=== PATIENT | female | born 1950 | race Caucasian/White ===

== ENCOUNTER 2017-08-21 15:33 | Emergency (ER) | payer OTHER ==
--- NOTE | 2017-08-21 16:00 | ER Report ---
History and Physical Time Seen By MD: 15:42 Hx. of Stated Complaint: PT REPORTS BURNING ON URINATION, HEADACHE, LOW BACK PAIN, DIARRHEA, NAUSEA HPI/ROS Chief Complaint: "bladder infection" HPI: 67-year-old female states she believes she has a bladder infection. The patient states she has had a long history of UTI as a child and had renal surgery at 16 years. The patient reports not having a UTI in years but reports increased stress and a long drive with few bathroom stops may have contributed to this episode. The patient reports that her symptoms started this morning with pain and burning with urination, blood in her urine, feverish symptoms, chills, nausea, and diarrhea. She has taken AZO for pain. Head: reports headache ENMT: denies sinus pressure, denies sore throat Respiratory: denies shortness of breath CV: denies chest pain : reports dysuria, burning, and pain with urination, hematuria, reports low back pain GI: reports diarrhea, denies constipation Allergies: Uncoded Allergies: ANTIBIOTIC (Allergy, Unknown, 08/21/17) Home Meds Active Scripts Ondansetron (ZOFRAN ODT) 4 Mg Tab.rapdis, 4 MG PO Q6H Y for NAUSEA/VOMITING, # 20 TAB.AZ Prov:MARIBELL CHAMBERSE [facility] 08/21/17 Sulfamethoxazole/Trimet 800-160 Mg Tab (BACTRIM DS TABLET) 1 Each Tablet, 1 TAB PO Q12H, #14 TAB Prov:REYESMARIBELLE [facility] 08/21/17 Discontinued Scripts Sulfamethoxazole/Trimet 800-160 Mg Tab (BACTRIM DS TABLET) 1 Each Tablet, 1 TAB PO Q12H for 7 Days, #14 TAB Prov:REYESMARIBELLE [facility] 08/21/17 Past Medical/Surgical History renal surgery at 16 years of age, arthritis, total hip replacement Reviewed Nurses Notes: Yes Hx Alcohol Use: No Constitutional Vital Sign - Last 24 Hours 08/21/17 08/21/17 15:43 16:57 Temp 98.4 Pulse 85 86 Resp 18 16 B/P (MAP) 156/84 167/86 (113) Pulse Ox 93 95 O2 Delivery Room Air Room Air Physical Exam General: 67-year-old ill appearing female HEENT: normocephalic, atraumatic, TMs arun tompkins without effusion, no rhinorrhea, no lymphadenopathy Respiratory: BL equal respiratory excursion, CTA BL CV: Clear S1 S2, no murmurs GI: normoactive BS x 4, no hepatosplenomegaly : suprapubic pain on palpation Differential diagnoses considered: UTI, pyelonephritis Medical Decision Making Data Points Laboratory Hematology Test 08/21/17 15:45 Urine Color Yellow Urine Clarity Cloudy Urine pH 6.0 pH (4.8-9.5) Urine Specific [place] 1.005 Urine Protein 30 mg/dL (NEGATIVE) Urine Glucose (UA) Negative mg/dL (NEGATIVE) Urine Ketones Negative mg/dL (NEGATIVE) Urine Blood Large (NEGATIVE) Urine Nitrite Negative (NEGATIVE) Urine Bilirubin Negative (NEGATIVE) Urine Urobilinogen Negative mg/dL (0.2-1.9) Urine Leukocyte Esterase Large (NEGATIVE) Urine RBC 138 /HPF (0-2/HPF) Urine WBC 228 /HPF (0-5/HPF) Urine WBC Clumps Mod /HPF Urine Squamous Epithelial Cells Many /LPF (</=FEW) Urine Bacteria Few /HPF (NONE-FEW) Urine Mucus Few /HPF (NONE-FEW) Chemistry Test 08/21/17 15:45 Urine Color Yellow Urine Clarity Cloudy Urine pH 6.0 pH (4.8-9.5) Urine Specific [place] 1.005 Urine Protein 30 mg/dL (NEGATIVE) Urine Glucose (UA) Negative mg/dL (NEGATIVE) Urine Ketones Negative mg/dL (NEGATIVE) Urine Blood Large (NEGATIVE) Urine Nitrite Negative (NEGATIVE) Urine Bilirubin Negative (NEGATIVE) Urine Urobilinogen Negative mg/dL (0.2-1.9) Urine Leukocyte Esterase Large (NEGATIVE) Urine RBC 138 /HPF (0-2/HPF) Urine WBC 228 /HPF (0-5/HPF) Urine WBC Clumps Mod /HPF Urine Squamous Epithelial Cells Many /LPF (</=FEW) Urine Bacteria Few /HPF (NONE-FEW) Urine Mucus Few /HPF (NONE-FEW) Urinalysis Test 08/21/17 15:45 Urine Color Yellow Urine Clarity Cloudy Urine pH 6.0 pH (4.8-9.5) Urine Specific [place] 1.005 Urine Protein 30 mg/dL (NEGATIVE) Urine Glucose (UA) Negative mg/dL (NEGATIVE) Urine Ketones Negative mg/dL (NEGATIVE) Urine Blood Large (NEGATIVE) Urine Nitrite Negative (NEGATIVE) Urine Bilirubin Negative (NEGATIVE) Urine Urobilinogen Negative mg/dL (0.2-1.9) Urine Leukocyte Esterase Large (NEGATIVE) Urine RBC 138 /HPF (0-2/HPF) Urine WBC 228 /HPF (0-5/HPF) Urine WBC Clumps Mod /HPF Urine Squamous Epithelial Cells Many /LPF (</=FEW) Urine Bacteria Few /HPF (NONE-FEW) Urine Mucus Few /HPF (NONE-FEW) ED Course/Re-evaluation ED Course 67-year-old female presents to the emergency with complaints of urinary tract infection. She reports a long history of UTIs as a child that improved after renal surgery at age 16 years. She states it has been a very long time since she has had a UTI but she knows exactly what it feels like. History and physical was obtained. Differential diagnoses were considered and shared with the patient. The UA was positive for UTI. The patient has been encouraged to push fluids and take her prescription of Bactrim as directed. The patient has been encouraged to follow up with her primary care provider within the week and return to the ER if her condition worsens. Decision to Disposition Date: Aug 21, 2017 Decision to Disposition Time: 16:52 Depart Departure Latest Vital Signs Vital Signs Date Time Temp Pulse Resp B/P (MAP) Pulse Ox O2 Delivery O2 Flow Rate FiO2 08/21/17 16:57 86 16 167/86 (113) 95 Room Air 08/21/17 15:43 98.4 Impression: Primary Impression: UTI (urinary tract infection) Condition: Improved Disposition: HOME OR SELF-CARE New Scripts Ondansetron (ZOFRAN ODT) 4 Mg Tab.rapdis 4 MG PO Q6H Y for NAUSEA/VOMITING, #20 TAB.AZ Prov: THOR CHAMBERS [facility] 08/21/17 Sulfamethoxazole/Trimet 800-160 Mg Tab (BACTRIM DS TABLET) 1 Each Tablet 1 TAB PO Q12H, #14 TAB Prov: THOR CHAMBERSP 08/21/17 Patient Instructions: Urinary Tract Infection in Children (ED) Additional Instructions: Return to the Emergency Department if your condition worsens. We will call you if there is any need to change your antibiotic after the urine is sent for culture. Seek medical attention if you do not see improvement of symptoms within 3 days. Increase your fluid intake. Problem Qualifiers Primary Impression: UTI (urinary tract infection) Urinary tract infection type: acute cystitis Hematuria presence: with hematuria Qualified Codes: N30.01 - Acute cystitis with hematuria THOR CHAMBERS Aug 21, 2017 15:59
[2017-08-21] MEDS ORDERED: SULF-198 PO ×2 (16:45→16:51)
[2017-08-21] MEDS ORDERED: ONDA4TAB PO (16:51)
[2017-08-21] MEDS ORDERED: ONDANSETRON 4 MG ODT TABDP SL ONE (16:55)
[2017-08-21 16:57] VITALS: BP 167/86
== END 2017-08-21 16:50 | disposition home or self-care (01) ==
LOC: ER 16:02
DX: N30.01 Acute cystitis with hematuria (principal)
CPT/HCPCS: 81001; 87077; 87088; 87186; 99283; S0119

== ENCOUNTER → 2017-12-10 | Outpatient (CLI) | payer MEDICARE ==
[~2017-12-10] MED LIST: ONDA4TAB PO; SULF-198 PO
--- NOTE | 2017-12-10 17:17 | RADIOLOGY IMAGING REPORT ---
FACILITY: [facility] - [place] PATIENT NAME: Gabby Dobson : 1950 MR: [id number] V: [id number] EXAM DATE: ORDERING PHYSICIAN: MESFIN HAWLEY TECHNOLOGIST: Location: [facility] - [place] Patient: Gabby Dobson : 1950 Visit/Account:[id number] Date of Sevice: 12/10/2017 Exam type: HIP RIGHT History: Right hip pain, two months post fall Comparison: None. Findings: Three views of the right hip demonstrate a right hip arthroplasty in good anatomic alignment. A scle rotic densities through the superior aspect of the greater trochanter on the right appears to be skin former edison although could conceivably represent subacute injury. There is a small radiopaque density in the soft tissues just above the greater trochanter on the right which also appears chronic. This a left hip arthroplasty which also appears in good anatomic alignment on this single AP view IMPRESSION: 1. Bilateral hip arthroplasties appear in good anatomic alignment A transverse sclerotic density along the superior tip of the greater trochanter on the right appears to be chronic although could conceivably represent subacute injury please see above discussion Report Dictated By: Lidia Cespedes MD at 12/10/2017 5:12 PM Report E-Signed By: Lidia Cespedes MD at 12/10/2017 5:14 PM [id number]:[email or web address]
== END ==
LOC: RAD 15:05
PROVIDERS: ATTEND Physician Assistant Medical
DX: M89.9 Disorder of bone, unspecified (principal); Z96.643 Presence of artificial hip joint, bilateral; R93.7 Abnormal findings on diagnostic imaging of other parts of musculoskeletal system; M25.551 Pain in right hip

== ENCOUNTER → 2017-12-14 | Outpatient (CLI) | payer MEDICARE ==
--- NOTE | 2017-12-14 16:17 | RADIOLOGY IMAGING REPORT ---
FACILITY: [facility] - [place] PATIENT NAME: Gabby Dobson : 1950 MR: [id number] V: [id number] EXAM DATE: ORDERING PHYSICIAN: MESFIN HAWLEY TECHNOLOGIST: Location: [facility] - [place] Patient: Gabby Dobson : 1950 Visit/Account:[id number] Date of Sevice: 12/14/2017 HIP RIGHT W/O CONTRAST HISTORY: Fall. Right hip pain. COMPARISON: X-ray 12/10/2017 TECHNIQUE: Multiplanar/multisequence was obtained through the pelvis without intravenous contrast. CONTRAST: None FINDINGS: Right hip: Joint space: Obscured by artifact from DAVID hardware. Irregularity with small focus of bone marrow francisco ma within the anterior-inferior iliac spine Left hip: Joint space: Normal Soft tissues: Negative Bony pelvis: Normal Pubic symphysis and SI joints: Normal Myotendinous structures: Normal Intrapelvic and lower abdominal findings: None significant Visualized spine: Normal Other findings: None significant IMPRESSION: 1. Right hip obscured by artifact from DAVID hardware. Irregularity with focus of bone marrow edema at the right anterior-inferior iliac spine may be a site of partial avulsion. No other osseous or soft t issue abnormality identified. Report Dictated By: Ezio Moore MD at 12/14/2017 4:03 PM Report E-Signed By: Ezio Moore MD at 12/14/2017 4:12 PM WSN:[id number]
== END ==
LOC: MRI 04:16
PROVIDERS: ATTEND Physician Assistant Medical
DX: Z96.641 Presence of right artificial hip joint (principal)